=== PATIENT | male | born 1950 | race Caucasian/White ===

== ENCOUNTER 2017-09-14 15:35 | Emergency (ER) | payer BC, MEDICARE ==
[2017-09-14 15:58] VITALS: BP 141/93
--- NOTE | 2017-09-14 16:03 | UC ---
Lower Extremity/Ankle HPI - HPI Summary HPI Summary: 66 yo male presents with pain and swelling to RIGHT foot 2nd toe for the last week. He tells me that he has a hx of gout and thought this was that - so he took his usual two doses of colchicine, but had no relief. He is ambulatory, but says that it does hurt with each step. Doesn't recall an injury or bite to the area. - History of Current Complaint Chief Complaint: UCLowerExtremity Stated Complaint: SWOLLEN FOOT Time Seen by Provider: 09/14/17 16:03 Hx Obtained From: Patient Onset/Duration: Gradual Onset Severity Initially: Moderate Severity Currently: Severe Pain Intensity: 8 Pain Scale Used: 0-10 Numeric Aggravating Factor(s): Standing, Ambulation Alleviating Factor(s): Rest Able to Bear Weight: Yes - Allergies/Home Medications Allergies/Adverse Reactions: Allergies Allergy/AdvReac Type Severity Reaction Status Date / Time Penicillins Allergy Hives Verified 09/14/17 15:59 Home Medications: Home Medications Colchicine [Mitigare] 0.6 mg PO 09/14/17 [History] PMH/Surg Hx/FS Hx/Imm Hx - Additional Past Medical History Additional PMH: Gout - Surgical History Surgical History: Yes Surgery Procedure, Year, and Place: hernia 30 yrs ago - Family History Known Family History: Positive: None - Social History Occupation: Employed Full-time Lives: With Family Alcohol Use: Daily Substance Use Type: None Smoking Status (MU): Never Smoked Tobacco Review of Systems Constitutional: Negative Skin: Other - redness to right 2nd toe Respiratory: Negative Cardiovascular: Negative Neurovascular: Negative Musculoskeletal: Other: - right 2nd toe pain Neurological: Negative Psychological: Negative All Other Systems Reviewed And Are Negative: Yes Physical Exam - Summary Physical Exam Summary: GENERAL: NAD. WDWN. No pain distress. SKIN: No rashes, sores, lesions, or open wounds. NECK: Supple. Nontender. No lymphadenopathy. CHEST: No accessory muscle use. Breathing comfortably and in no distress. CV: Pulses intact PT and DP. Brisk cap refill. MSK: RIGHT 2nd toe: Mild erythema and edema about whole toe. FROM. No specific point tenderness. NEURO: Alert. Sensations intact and symmetric B/L LEs PSYCH: Age appropriate behavior. Triage Information Reviewed: Yes Vital Signs: Initial Vital Signs Temp 98.0 F 09/14/17 15:54 Pulse 58 07/23/18 15:54 Resp 18 09/14/17 15:54 BP 141/93 09/14/17 15:54 Pulse Ox 99 09/14/17 15:54 Lower Extremity Course/Dx - Course Course Of Treatment: XR: IMPRESSION: SOFT TISSUE SWELLING, NO SPECIFIC EVIDENCE FOR OSTEOMYELITIS. IF THERE IS A. HIGH CLINICAL INDEX OF SUSPICION FOR OSTEOMYELITIS CONSIDER AN MRI WITHOUT CONTRAST OR A. THREE-PHASE BONE SCAN. Suspect cellulitis. Rx for clindamycin and f/u if symptoms persist. - Differential Dx/Diagnosis Provider Diagnoses: Right 2nd toe cellulitis Discharge - Sign-Out/Discharge Documenting (check all that apply): Patient Departure - Discharge Plan Condition: Stable Disposition: HOME Prescriptions: Clindamycin HCl 150 mg PO TID #21 capsule Patient Education Materials: Cellulitis (DC) Referrals: Isauro Bundy MD [Primary Care Provider] - Additional Instructions: If you develop a fever, shortness of breath, chest pain, new or worsening symptoms - please call your PCP or go to the ED. Your blood pressure was high at todays visit. Please see your primary provider within 4 weeks for recheck and re-evaluation. - Billing Disposition and Condition Condition: STABLE Disposition: Home
--- NOTE | 2017-09-14 16:38 | RAD ---
INDICATION: Pain and redness right second toe. TECHNIQUE: 3 views of the right second toe were obtained. FINDINGS: There is diffuse soft tissue swelling throughout the toe. No fracture is seen. Joint spaces appear maintained. No erosive changes or periosteal reaction is seen. IMPRESSION: SOFT TISSUE SWELLING, NO SPECIFIC EVIDENCE FOR OSTEOMYELITIS. IF THERE IS A HIGH CLINICAL INDEX OF SUSPICION FOR OSTEOMYELITIS CONSIDER AN MRI WITHOUT CONTRAST OR A THREE-PHASE BONE SCAN.
== END 2017-09-14 16:49 | disposition home or self-care (01) ==
LOC: UCEAST 15:35
DX: L03.031 Cellulitis of right toe (principal); Z88.0 Allergy status to penicillin
CPT/HCPCS: 99202; G0463

== ENCOUNTER 2019-01-15 10:23 | Emergency (ER) | payer MEDICARE, OTHER ==
[2019-01-15 10:30] VITALS: BP 138/85
--- NOTE | 2019-01-15 10:40 | UC ---
Throat Pain/Nasal [place] HPI - HPI Summary HPI Summary: sinus pain congestion, bilateral ear pain for 2 weeks worse after flying recently - History of Current Complaint Chief Complaint: UCRespiratory Stated Complaint: POSSIBLE SINUS INFECTION Time Seen by Provider: 01/15/19 10:26 Hx Obtained From: Patient Onset/Duration: Gradual Onset, Lasting Weeks - 2, Still Present Pain Intensity: 5 Pain Scale Used: 0-10 Numeric Cough: None Associated Signs & Symptoms: Positive: Sinus Discomfort - Allergies/Home Medications Allergies/Adverse Reactions: Allergies Allergy/AdvReac Type Severity Reaction Status Date / Time Penicillins Allergy Hives Verified 01/15/19 10:30 PMH/Surg Hx/FS Hx/Imm Hx Previously Healthy: Yes - Surgical History Surgical History: Yes Surgery Procedure, Year, and Place: hernia 30 yrs ago - Family History Known Family History: Positive: None - Social History Occupation: Employed Full-time Lives: With Family Alcohol Use: Daily Substance Use Type: None Smoking Status (MU): Never Smoked Tobacco Review of Systems All Other Systems Reviewed And Are Negative: Yes Constitutional: Positive: Negative Skin: Positive: Negative Eyes: Positive: Negative ENT: Positive: Sore Throat, Ear Ache, Sinus Congestion, Sinus Pain/Tenderness Respiratory: Positive: Negative Cardiovascular: Positive: Negative Gastrointestinal: Positive: Negative Genitourinary: Positive: Negative Motor: Positive: Negative Neurovascular: Positive: Negative Musculoskeletal: Positive: Negative Neurological: Positive: Negative Psychological: Positive: Negative Is Patient Immunocompromised?: No Physical Exam Triage Information Reviewed: Yes Appearance: Well-Appearing, No Pain Distress, Well-Nourished Vital Signs: Initial Vital Signs Temp 98 F 01/15/19 10:27 Pulse 76 01/15/19 10:27 Resp 16 01/15/19 10:27 BP 138/85 01/15/19 10:27 Pulse Ox 100 01/15/19 10:27 Vital Signs Reviewed: Yes Eye Exam: Normal Eyes: Positive: Conjunctiva Clear ENT Exam: Normal ENT: Positive: Normal ENT inspection, Hearing grossly normal, Pharynx normal, Nasal congestion, TMs normal, Sinus tenderness, Uvula midline. Negative: Nasal drainage, Tonsillar swelling, Tonsillar exudate, Trismus, Muffled voice, Hoarse voice, Dental tenderness Dental Exam: Normal Neck exam: Normal Neck: Positive: Supple, Nontender Respiratory Exam: Normal Respiratory: Positive: Chest non-tender, No respiratory distress, No accessory muscle use Cardiovascular Exam: Normal Cardiovascular: Positive: RRR, No Murmur, Pulses Normal, Brisk Capillary Refill Musculoskeletal Exam: Normal Musculoskeletal: Positive: Strength Intact, ROM Intact, No Edema Neurological Exam: Normal Neurological: Positive: Alert, Muscle Tone Normal Psychological Exam: Normal Skin Exam: Normal Throat Pain/Nasal Course/Dx - Course Course Of Treatment: flonase nasal spray , zithromax increase fluids, ok to continue mucinex - Differential Dx/Diagnosis Provider Diagnosis: Acute rhinosinusitis Discharge ED - Sign-Out/Discharge Documenting (check all that apply): Patient Departure All imaging exams completed and their final reports reviewed: No Studies - Discharge Plan Condition: Stable Disposition: HOME Prescriptions: Azithromycin TAB* [Zithromax TAB (Z-LIZ) 250 mg #6 tabs] 2 tab PO .TODAY, THEN 1 DAILY #1 liz Fluticasone NASAL SPRAY 50MCG* [Flonase NASAL SPRAY 50MCG*] 2 spray BOTH NARES DAILY #1 btl Patient Education Materials: Sinusitis (ED), How to Use Nasal [place] (ED) Referrals: [facility] [Outside] - If Needed - Billing Disposition and Condition Condition: STABLE Disposition: Home - Attestation Statements Provider Attestation: I was available for consult. This patient was seen by the NEELAM. The patient was not presented to , seen by or examined by -Jaymie Bo MD
== END 2019-01-15 10:44 | disposition home or self-care (01) ==
LOC: UCEAST 10:23
DX: J01.90 Acute sinusitis, unspecified (principal); H92.03 Otalgia, bilateral; J02.9 Acute pharyngitis, unspecified; Z88.0 Allergy status to penicillin
CPT/HCPCS: 99212; G0463